=== PATIENT | female | born 1960 | race Two or more races ===

== ENCOUNTER 2016-09-23 14:07 | Emergency (ER) | payer MEDICAID ==
[~2016-09-23] VITALS: Ht 160 cm; Wt 54.4 kg
[~2016-09-23 14:07] MED LIST: AMOXIL250 MG ORAL; IBUPROFEN600 MG ORAL; NKM
[2016-09-23 15:12] VITALS: BP 104/69
[2016-09-23] MEDS ORDERED: Pseudoephedrine 30mg tab ORAL ONE (15:15)
--- NOTE | 2016-09-23 16:10 | Diagnostic Imaging Report ---
Indication: Cough Comparison: 02/17/16 2 views of the chest obtained. No definite infiltrate or pulmonary vascular congestion identified. The heart is borderline enlarged. The aorta is mildly enlarged consistent with atherosclerotic vascular disease. The bones are osteopenic. Impression: No acute disease
[2016-09-23 17:38] VITALS: BP 111/70
[2016-09-23] MEDS ORDERED: IBUPROFEN600 MG ORAL (17:42)
[2016-09-23] MEDS ORDERED: CHLORPHENIRAMINE4 MG ORAL (17:42)
[2016-09-23] MEDS ORDERED: PROMETHAZINE-P118 M1 PO (17:42)
[2016-09-23 18:07] VITALS: BP 111/74
--- NOTE | 2016-09-23 19:52 | Emergency Room Report ---
History of Present Illness General Chief Complaint: Flu Like Symptoms Source: Patient Present Illness HPI Patient presents with 2 days of upper respiratory infection symptoms. She's had a stuffy nose. She also has heaviness in chest pressure. She's been coughing but hasn't been productive. She did not get a flu shot this year. She concerned about her heart and also about whether she has pneumonia at this time and she does not hear wheezing. She's not exposed to cigarette smoke but several days ago was exposed to some spray at work. No NVD, no dysuria, slight headache, no rashes. + body aches 5/10, not radiate - upper back and other muscles. Mucous from nose is clear. Post menopausal. No dysuria. Allergies: Coded Allergies: No Known Allergies (Unverified , 02/17/16) Patient History Past Medical History: see triage record Social History: Denies: smoking Social History Narrative Working Last Menstrual Period: not anymore Now: No : 1 Reviewed Nursing Documentation: PMH: Agreed, PSxH: Agreed Nursing Documentation-PMH Past Medical History: No Stated History Review of Systems All Other Systems: negative except mentioned in HPI Physical Exam Vital Signs Date Time Temp Pulse Resp B/P Pulse Ox O2 Delivery O2 Flow Rate FiO2 09/23/16 14:51 98.4 76 18 101/68 98 Room Air Sp02 EP Interpretation: reviewed, normal General Appearance: well appearing, no apparent distress, GCS 15 Head: normocephalic Eyes: bilateral eye PERRL, bilateral eye normal inspection ENT: moist mucus membranes, pharyngeal erythema, other - nasal congestion - clear Neck: supple Respiratory: lungs clear, normal breath sounds Cardiovascular #1: regular rate, rhythm Cardiovascular #2: 2+ radial (R) Gastrointestinal: normal inspection, normal bowel sounds, non tender, no mass, non-distended Musculoskeletal: back normal, gait/station normal, normal range of motion Neurologic: alert, oriented x3, grossly normal Psychiatric: mood/affect normal Skin: normal inspection, warm/dry Medical Decision Making Diagnostic Impression: Primary Impression: Viral upper respiratory illness ER Course Patient with URI 2 days. Ddx: influenza, viral URI, sinusitis amongst others. Need to determine if flu. If + needs treatment. Will address symptoms. Flu negative. Improved with treatment Stable for outpatient observation and treatment. Microbiology Date/Time Source Procedure Growth Status 09/23/16 16:20 Nasal Nares Influenza Types A,B Antigen (LIZBETH) - Final Complete EKG Diagnostic Results Rate: normal Rhythm: NSR ST Segments: no acute changes Rhythm Strip Diag. Results EP Interpretation: yes Rhythm: NSR, no PVC's, no ectopy Chest X-Ray Diagnostic Results EP Interpretation: Yes Findings: no consolidation, no effusion, no pneumothorax, no acute cardiopulmonary disease Number of Views: 2 Last Vital Signs Date Time Temp Pulse Resp B/P Pulse Ox O2 Delivery O2 Flow Rate FiO2 09/23/16 18:07 78 17 111/74 100 Room Air 09/23/16 17:38 98.6 Status: improved Disposition: HOME, SELF-CARE Condition: Improved Scripts Chlorpheniramine Maleate (CHLORPHENIRAMINE MALEATE) 4 Mg Tablet 4 MG ORAL Q6HR, #12 TAB 0 Refills Prov: Arsenio Soria M.D. 09/23/16 Ibuprofen* (MOTRIN*) 600 Mg Tablet 600 MG ORAL Q6H Y for For Pain, #20 TAB Prov: Arsenio Soria M.D. 09/23/16 Promethazine/Phenyleph/Codeine (Zdjamkbrimoz-BD-Dpelugo Syrup) 118 Ml Syrup 5 ML PO Q6HR, #60 ML Prov: Arsenio Soria M.D. 09/23/16 Departure Forms: Return to Work Return to Work in (Days): 2 Return to Work Date: Sep 25, 2016 Patient Instructions: Upper Respiratory Infection, Adult Additional Instructions: Tylenol j[place] pimentel. Arsenio Soria M.D. Sep 23, 2016 19:52
== END 2016-09-23 18:10 | disposition home or self-care (01) ==
LOC: EMR 15:10
DX: J06.9 Acute upper respiratory infection, unspecified (principal)
CPT/HCPCS: 71020; 86710; 93005; 99283

== ENCOUNTER 2017-01-28 12:33 | Emergency (ER) | payer MEDICAID ==
[~2017-01-28] VITALS: Ht 157.5 cm; Wt 52.6 kg
[~2017-01-28 12:33] MED LIST changes: +CHLORPHENIRAMINE4 MG ORAL; +PROMETHAZINE-P118 M1 PO
--- NOTE | 2017-01-28 12:50 | Emergency Room Report ---
History of Present Illness General Chief Complaint: Upper Respiratory Illness Source: Patient Present Illness [facility] The patient is a 56-year-old female presenting for nasal congestion, dry cough, sneezing which began yesterday at work for no known reason. She denies any known allergies. She is also complaining of chest and back pain which occurs only with coughing. this pain is described as an 8/10 dull ache and does not radiate. She denies any other symptoms including N, V, F, chills, SOB, diaphoresis Allergies: Coded Allergies: No Known Allergies (Unverified , 02/17/16) Patient History Past Medical History: see triage record Pertinent Family History: none Reviewed Nursing Documentation: PMH: Agreed, PSxH: Agreed Nursing Documentation-PMH Past Medical History: No Stated History Review of Systems All Other Systems: negative except mentioned in HPI Physical Exam Vital Signs Date Time Temp Pulse Resp B/P Pulse Ox O2 Delivery O2 Flow Rate FiO2 01/28/17 12:38 98.1 77 20 121/79 100 Room Air Sp02 EP Interpretation: reviewed, normal General Appearance: no apparent distress, alert, GCS 15, non-toxic Head: normocephalic, atraumatic Eyes: bilateral eye PERRL, bilateral eye normal inspection ENT: normal pharynx, no angioedema, normal voice, TMs + canals normal, uvula midline, nasal congestion Neck: full range of motion, supple/symm/no masses Respiratory: chest non-tender, lungs clear, normal breath sounds, no respiratory distress, no accessory muscle use, no wheezing, speaking full sentences Musculoskeletal: back normal, gait/station normal, normal range of motion, non- tender Neurologic: alert, oriented x3, responsive, motor strength/tone normal, sensory intact, normal gait, speech normal Psychiatric: judgement/insight normal, memory normal, mood/affect normal, no suicidal/homicidal ideation Skin: normal color, no rash, warm/dry, well hydrated Lymphatic: no adenopathy Medical Decision Making PA Attestation Dr. Peoples is my supervising physician. Patient management was discussed with my supervising physician Diagnostic Impression: Primary Impression: Environmental allergies ER Course The patient is a 56-year-old female presenting for nasal congestion, dry cough, sneezing Differential diagnosis include but not limited to pharyngitis, allergies, sinusitis, AOM, bronchitis, PNA PE: vitals WNL. NAD HEENT exam reveals nasal congestion only. No lymphadenopathy. Otherwise unremarkable Lungs are clear to auscultation bilaterally The patient will be treated with Claritin and cough medication. She will follow up with PMD. He ER precautions given Chest X-Ray Diagnostic Results EP Interpretation: Yes Findings: no consolidation, no effusion, no pneumothorax, no acute cardiopulmonary disease Number of Views: 1 PA Scribe Text I am acting as scribe for my supervising physician. My supervising physician's interpretation of the chest xrays are there is no consolidation, no effusion, no acute cardiopulmonary disease, no pneumothorax Last Vital Signs Date Time Temp Pulse Resp B/P Pulse Ox O2 Delivery O2 Flow Rate FiO2 01/28/17 12:38 98.1 77 20 121/79 100 Room Air Status: improved Disposition: HOME, SELF-CARE Condition: Improved Scripts Benzonatate* (MARIE MOY*) 100 Mg Capsule 100 MG ORAL THREE TIMES A DAY, #21 PERLE Prov: TERZIANSARATH P.A. 01/28/17 Loratadine/Pseudoephedrine (CLARITIN-D 24 HOUR TABLET) 1 Each Tab.er.24h 1 TAB PO DAILY, #30 TAB Prov: TERZIANSARATH P.A. 01/28/17 TERZIANSARATH P.A. January 28, 2017 12:50
[2017-01-28 13:30] VITALS: BP 117/75
[2017-01-28] MEDS ORDERED: CLARITIN-D 241 EACH PO (13:39)
[2017-01-28] MEDS ORDERED: TESSALON PERLE100 MG ORAL (13:39)
[2017-01-28 13:45] VITALS: BP 117/75
--- NOTE | 2017-01-28 16:08 | Diagnostic Imaging Report ---
Indication: Cough, chest pain Technique: Single AP view of the chest. Findings: Comparison: 09/23/16 Small pleural-based linear density and adjacent pleural thickening persistent lateral aspect of the upper right hemithorax, unchanged. Mild left apical pleural thickening persists, unchanged. The bones and extra pulmonary soft tissues, cardiomediastinal silhouette, pulmonary vasculature and parenchyma, and pleural surfaces remain otherwise unremarkable. IMPRESSION: Stable right upper lobe probable scarring and adjacent pleural thickening Stable mild left apical pleural thickening likely chronic inflammatory No new abnormality.
== END 2017-01-28 13:45 | disposition home or self-care (01) ==
LOC: EMR 13:17
DX: J39.9 Disease of upper respiratory tract, unspecified (principal); T78.40XA Allergy, unspecified, initial encounter; X58.XXXA Exposure to other specified factors, initial encounter; R05 Cough; R06.7 Sneezing; R09.81 Nasal congestion
CPT/HCPCS: 71010; 99284

== ENCOUNTER 2018-01-24 09:31 | Emergency (ER) | payer MEDICAID ==
[~2018-01-24] VITALS: Ht 160 cm; Wt 53.1 kg
[~2018-01-24 09:31] MED LIST changes: +CLARITIN-D 241 EACH PO; +TESSALON PERLE100 MG ORAL
[2018-01-24 09:40] VITALS: BP 113/73
--- NOTE | 2018-01-24 10:04 | Emergency Room Report ---
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 from the chemical denies any recent travel denies any pleurisy Allergies: Coded Allergies: No Known Allergies (Unverified , 02/17/16) Patient History Past Medical History: see triage record Pertinent Family History: none Last Menstrual Period: NA Reviewed Nursing Documentation: PMH: Agreed; PSxH: Agreed Nursing Documentation-PMH Past Medical History: No Stated History Review of Systems All Other Systems: negative except mentioned in HPI Physical Exam Vital Signs Date Time Temp Pulse Resp B/P (MAP) Pulse Ox O2 Delivery O2 Flow Rate FiO2 01/24/18 09:33 97.9 76 16 113/73 97 Room Air 97.9 Sp02 EP Interpretation: reviewed, normal General Appearance: well appearing, no apparent distress Head: normocephalic, atraumatic Eyes: bilateral eye PERRL, bilateral eye EOMI ENT: hearing grossly normal, TMs + canals normal, uvula midline, pharyngeal erythema Neck: full range of motion, supple, no meningismus, no bony tend Respiratory: lungs clear, normal breath sounds, no rhonchi, no respiratory distress, no retraction, no accessory muscle use Cardiovascular #1: normal peripheral pulses, regular rate, rhythm, no edema, no gallop, no JVD, no murmur Gastrointestinal: normal bowel sounds, non tender, soft, no mass, no organomegaly, non-distended, no guarding, no hernia, no pulsatile mass, no rebound Genitourinary: no CVA tenderness Musculoskeletal: normal inspection Neurologic: oriented x3, responsive, interior design consultant III-XII nml as tested, motor strength/ tone normal, sensory intact Psychiatric: mood/affect normal Skin: normal color, no rash, warm/dry, palpation normal Lymphatic: normal inspection, no adenopathy Medical Decision Making Diagnostic Impression: Primary Impression: Pharyngitis ER Course Patient has clinical findings consistent with pharyngitis Given the duration of her age given the risk factors x-ray was also obtained without any obvious acute pathology Imaging was negative patient has done well throughout her stay at this time will be initially conservatively treated with antibiotics for the pharyngitis Chest X-Ray Diagnostic Results Chest X-Ray Diagnostic Results : Chest X-Ray Ordered: Yes # of Views/Limited/Complete: 1 View Indication: Shortness of Breath EP Interpretation: Yes Interpretation: no consolidation, no effusion, no pneumothorax Impression: No acute disease Electronically Signed by: Sonia Dial DO Last Vital Signs Date Time Temp Pulse Resp B/P (MAP) Pulse Ox O2 Delivery O2 Flow Rate FiO2 01/24/18 09:40 76 16 Room Air 01/24/18 09:40 97.9 113/73 97 97.9 Status: improved Disposition: HOME, SELF-CARE Condition: Improved Scripts Ibuprofen* (MOTRIN*) 600 Mg Tablet 600 MG ORAL Q8H PRN for For Pain, #20 TAB 0 Refills Prov: Sonia Dial DO 01/24/18 Amoxicillin* (AMOXIL*) 500 Mg Capsule 500 MG ORAL THREE TIMES A DAY, #21 CAP Prov: Sonia Dial DO 01/24/18 Additional Instructions: Patient is provided with the discharge instructions notified to follow up with primary doctor in the next 2-3 days otherwise return to the er with any worsening symptoms. Please note that this report is being documented using o[employer]k technology. This can lead to erroneous entry secondary to incorrect interpretation by the dictating instrument. Sonia Dial DO January 24, 2018 10:04
[2018-01-24] MEDS ORDERED: AMOXICILLIN500 MG ORAL (11:06)
[2018-01-24] MEDS ORDERED: IBUPROFEN600 MG ORAL (11:06)
--- NOTE | 2018-01-24 11:20 | Diagnostic Imaging Report ---
Indication: Dyspnea Comparison: 01/28/2017 A single view chest radiograph was obtained. Findings: No definite infiltrate or pulmonary vascular congestion identified. The heart is mildly enlarged. The bones are mildly osteopenic. There is no change. Impression: No acute disease
[2018-01-24 11:21] VITALS: BP 124/76
== END 2018-01-24 11:24 | disposition home or self-care (01) ==
LOC: EMR 10:20
DX: J02.9 Acute pharyngitis, unspecified (principal)
CPT/HCPCS: 71045; 99284

== ENCOUNTER 2018-11-26 09:10 | Emergency (ER) | payer MEDICAID ==
[~2018-11-26] VITALS: Ht 160 cm; Wt 53.1 kg
[~2018-11-26 09:10] MED LIST changes: +AMOXICILLIN500 MG ORAL
[2018-11-26 09:29] VITALS: BP 110/70
--- NOTE | 2018-11-26 09:35 | NUR ---
ED Nurse Note: Patient walked in by her self with steady gait, complaining of sore throat. Deny headache, SOB. Per patient it is painful to swalow. AAO x4, VSS at this time. Skin is dry, intakt, warm to touch.
--- NOTE | 2018-11-26 09:48 | Emergency Room Report ---
History of Present Illness General Chief Complaint: Upper Respiratory Illness Source: Patient Present Illness HPI Patient presents with one month of intermittent upper respiratory symptomatology. Currently she has 3 days of worsening cough with mild chest pain. She also has some flank pain on the right-hand side. She's had a workup and told that she has a cyst there. The cough is clear she has increased discharge from her nose and sore throat. In the past she's taken antihistamines and it helped. In addition she's used an inhaler. When she uses the inhaler makes her dizzy. The chest pain is mild and pleuritic. She's taken ibuprofen with some help. She received a flu shot last year. She denies having recent fever or chills. Pain rated 7/10, flank and chest. Not radiating. Not pleuritic. She denies dysuria, nausea, vomiting, diarrhea. The patient ALSO complains about knee pain and right Achilles tendon tenderness in the mornings. She says that time she gets up and moves about has some warm water on the area it helped. She's had a negative workup for arthritis in the past. 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 Period: None Now: No : 1 Para: 1 Reviewed Nursing Documentation: PMH: Agreed; PSxH: Agreed Nursing Documentation-PMH Past Medical History: No Stated History Review of Systems All Other Systems: negative except mentioned in HPI Physical Exam Vital Signs Date Time Temp Pulse Resp B/P (MAP) Pulse Ox O2 Delivery O2 Flow Rate FiO2 11/26/18 09:20 98.6 76 15 108/73 99 11/26/18 09:29 Room Air Sp02 EP Interpretation: reviewed, normal General Appearance: well appearing, no apparent distress Head: normocephalic, atraumatic ENT: hearing grossly normal, normal voice Neck: full range of motion, supple Respiratory: no respiratory distress, speaking full sentences Musculoskeletal: no calf tenderness Neurologic: alert, normal gait Psychiatric: mood/affect normal Skin: no rash Medical Decision Making Diagnostic Impression: Primary Impression: Upper respiratory infection Qualified Codes: J06.9 - Acute upper respiratory infection, unspecified Additional Impression: Tendinitis ER Course Patient presents with URI symptoms with sinus congestion, sore thraot, cough and chest and flank pain. DDx: viral syndrome, sinusitis, muscle strain, pharyngitis amongst others. Exam against flu or strep. Also has symptoms of Julissa's tendon tenderness in AMs. No erythema or plantar fascia tenderness. Clinically, not pneumonia. Based on exam,more viral etiology. Treated with prednisone. Discussed findings and treatment course. Patient stable for outpatient observation and treatment. Last Vital Signs Date Time Temp Pulse Resp B/P (MAP) Pulse Ox O2 Delivery O2 Flow Rate FiO2 11/26/18 10:01 97.9 68 16 135/67 99 Room Air Status: improved Disposition: HOME, SELF-CARE Condition: Improved Scripts Acetaminophen (Tylenol) 325 Mg Tablet 650 MG ORAL Q6H PRN for Prn Pain/Headache/Temp > 101, #20 TAB 0 Refills Prov: Arsenio Soria MD 11/26/18 Chlorpheniramine Maleate (CHLOR-TRIMETON) 4 Mg Tablet 4 MG PO Q6HR PRN for congestion, #14 TAB Prov: Arsenio Soria MD 11/26/18 Guaifenesin/Codeine Phos* (ROBITUSSIN AC*) 118 Ml Liquid 5 ML ORAL Q6H PRN for For Cough, #90 ML 0 Refills Prov: Arsenio Soria MD 11/26/18 Referrals: [facility],REFERR[facility] (PCP) Arsenio Soria MD Nov 26, 2018 09:48
[2018-11-26] MEDS ORDERED: GUAIFENESIN-CO118 M1 ORAL (09:58)
[2018-11-26] MEDS ORDERED: CHLOR-TRIMETON4 MG PO (09:58)
[2018-11-26] MEDS ORDERED: TYLENOL325 MG ORAL (09:58)
[2018-11-26 10:01] VITALS: BP 135/67
--- NOTE | 2018-11-26 10:03 | NUR ---
ER DISCHARGE NOTE: Patient is cleared to be discharged per ERMD, pt is aox4, on room air, with stable vital signs. pt was given dc and prescription instructions, pt was able to verbalize understanding, pt id band removed. pt is able to ambulate with steady gait. pt took all belongings.
== END 2018-11-26 10:15 | disposition home or self-care (01) ==
LOC: EMR 09:30
DX: J06.9 Acute upper respiratory infection, unspecified (principal); M77.9 Enthesopathy, unspecified; R06.00 Dyspnea, unspecified
CPT/HCPCS: 99282; J7512

== ENCOUNTER 2018-11-28 18:25 | Emergency (ER) | payer MEDICAID ==
[~2018-11-28] VITALS: Ht 160 cm; Wt 53.1 kg
[~2018-11-28 18:25] MED LIST changes: +CHLOR-TRIMETON4 MG PO; +GUAIFENESIN-CO118 M1 ORAL; +TYLENOL325 MG ORAL
[2018-11-28 18:44] VITALS: BP 112/77
--- NOTE | 2018-11-28 18:47 | NUR ---
ED Nurse Note: pt walked in to ER c/o coughing for a few days and sore throat 04/15. pt aao x4 and calm and cooperative. per pt, she has been coughing with thick and white phlem coming out. pt is persistently coughing at this moment. no fever, pt denied N/V/D but dizziness present. skin clean and intact. waiting to be seen by ERMD/ERPA
--- NOTE | 2018-11-28 19:00 | NUR ---
ED Nurse Note: ERPA at bedside and assessing pt.
--- NOTE | 2018-11-28 19:15 | NUR ---
HAND-OFF: Report given to GRACIE Snow. EKG will be done.
--- NOTE | 2018-11-28 19:42 | Emergency Room Report ---
History of Present Illness General Chief Complaint: Flu Like Symptoms Source: Patient Present Illness HPI 58 YO Female presents to the ED c/o 04/15 in severity painful cough x 1 week. pt. reporting fevers. Pt. reports that the medications she was recently rx'd are not helping, they are just making her tired. Pt. denies Cardiac hx. pt. reports some SOB after multiple bouts of coughing. Pt. denies smoking, recent travel, or ill contacts. She denies LE edema. Allergies: Coded Allergies: No Known Allergies (Unverified , 02/17/16) Patient History Past Medical History: see triage record Past Surgical History: none Pertinent Family History: none Now: No Reviewed Nursing Documentation: PMH: Agreed; PSxH: Agreed Nursing Documentation-PMH Past Medical History: No Stated History Review of Systems All Other Systems: negative except mentioned in HPI Physical Exam Vital Signs Date Time Temp Pulse Resp B/P (MAP) Pulse Ox O2 Delivery O2 Flow Rate FiO2 11/28/18 18:32 98.4 74 19 112/77 96 Room Air Sp02 EP Interpretation: reviewed, normal General Appearance: no apparent distress, alert, GCS 15, non-toxic Head: normocephalic, atraumatic Eyes: bilateral eye normal inspection, bilateral eye PERRL ENT: hearing grossly normal, normal voice Neck: full range of motion Respiratory: chest non-tender, lungs clear, normal breath sounds, no respiratory distress, no retraction, no accessory muscle use, speaking full sentences, wheezing - scant only at the end of expiration Cardiovascular #1: regular rate, rhythm, no edema Musculoskeletal: back normal, gait/station normal, normal range of motion, non- tender Neurologic: alert, oriented x3, responsive, motor strength/tone normal, sensory intact, speech normal, grossly normal Psychiatric: judgement/insight normal Skin: normal color, no rash, warm/dry, well hydrated Lymphatic: no adenopathy Medical Decision Making PA Attestation Dr. barnes is my supervising Physician whom patient management has been discussed with. Diagnostic Impression: Primary Impression: Atypical pneumonia ER Course 58 YO Female presents to the ED c/o 04/15 in severity painful cough x 1 week. pt. reporting fevers. Pt. reports that the medications she was recently rx'd are not helping, they are just making her tired. Pt. denies Cardiac hx. pt. reports some SOB after multiple bouts of coughing. Pt. denies smoking, recent travel, or ill contacts. She denies LE edema. Ddx considered but are not limited to URI, pneumonia, PE, strep pharyngitis, meningitis. Vital signs: Pt. is afebrile, the remaining VS are WNL H&PE are most consistent with Atypical Pneumonia - no meningeal signs, oropharynx is not involved.. ORDERS: -EK NSR ED INTERVENTIONS: None required at this time. --PT. EDUCATION: Discussed antibiotic resistance with inappropriate prescribing of antibiotics for viral illnesses. Discussed signs and symptoms to indicate viral illness versus bacterial illness. DISCHARGE: At this time pt. is stable for d/c to home. Will provide printed patient care instructions, and any necessary prescriptions. Care plan and follow up instructions have been discussed with the patient prior to discharge. EKG Diagnostic Results EP Interpretation: Dr. Peoples Rate: normal - 68 Rhythm: NSR ST Segments: no acute changes ASA given to the pt in ED: No PA Scribe Text This Interpretation was scribed by ZOE Heller. Last Vital Signs Date Time Temp Pulse Resp B/P (MAP) Pulse Ox O2 Delivery O2 Flow Rate FiO2 11/28/18 18:44 98.1 74 19 112/77 96 Room Air Disposition: HOME, SELF-CARE Condition: Stable Scripts Benzonatate* (TESSALON PERLE*) 100 Mg Capsule 100 MG ORAL THREE TIMES A DAY, #30 PERLE Prov: Jo Ann Heller 11/28/18 Prednisone* (PREDNISONE*) 20 Mg Tablet 40 MG ORAL DAILY for 4 Days, #8 TAB Prov: Jo Ann Heller 11/28/18 Azithromycin* (ZITHROMAX*) 250 Mg Tablet 250 MG ORAL DAILY, #6 TAB 0 Refills Take two tables once daily for 1 day, then one tablet once daily for 4 days. Prov: Jo Ann Heller 11/28/18 Patient Instructions: Acute Bronchitis, [id number] Additional Instructions: Take medications as directed. Follow up with a Primary Care Provider in 3-5 days, even if your symptoms have resolved. --Please review list of primary care clinics, if you do not already have a primary care provider Return sooner to ED if new symptoms occur, or current symptoms become worse. - Please note that this Emergency Department Report was dictated using [employer] machine shop technology software, occasionally this can lead to erroneous entry secondary to interpretation by the dictation equipment. Jo Ann Heller Nov 28, 2018 19:42
[2018-11-28] MEDS ORDERED: PREDNISONE20 MG ORAL (19:48)
[2018-11-28] MEDS ORDERED: ZITHROMAX250 MG ORAL (19:48)
[2018-11-28] MEDS ORDERED: TESSALON PERLE100 MG ORAL (19:48)
--- NOTE | 2018-11-28 19:57 | NUR ---
ED Nurse Note: Patient cleared for discharge by ER provider, patient ambulatory with steady gait, verbalized understanding of discharge instructions, departed with all belongings accompanied by a friend.
[2018-11-28 19:59] VITALS: BP 112/77
--- NOTE | 2018-11-29 19:17 | Cardiology Report ---
APPROVED REPORT EKG Measurement Heart [id number] Normal sinus rhythm Normal ECG
== END 2018-11-28 20:00 | disposition home or self-care (01) ==
LOC: EMR 19:13
DX: J18.9 Pneumonia, unspecified organism (principal)
CPT/HCPCS: 93005; 99283

== ENCOUNTER 2018-11-30 13:21 | Emergency (ER) | payer MEDICAID ==
[~2018-11-30] VITALS: Ht 160 cm; Wt 53.1 kg
[~2018-11-30 13:21] MED LIST changes: +PREDNISONE20 MG ORAL; +ZITHROMAX250 MG ORAL
[2018-11-30 13:40] VITALS: BP 131/89
--- NOTE | 2018-11-30 14:15 | Emergency Room Report ---
History of Present Illness General Chief Complaint: General Complaint Source: Patient Present Illness HPI 58-year-old female patient presents ER complaining of diarrhea for the past day. Patient reports that she was previously seen here in the ER and given antibiotics for atypical pneumonia, states she has been taking azithromycin as instructed. Denies blood in stool. Denies recent travel outside the country. Also reports continued cough during this time. Reports that this morning she noted a small tinge of blood in her cough. Reports cough is intermittent. Denies shortness of breath. Denies other aggravating or relieving factors. Denies abdominal pain. Denies vomiting. Denies recent travel or recent period of immobilization. Denies syncope or dizziness. Allergies: Coded Allergies: No Known Allergies (Unverified , 02/17/16) Patient History Past Medical History: see triage record Last Menstrual Period: na Reviewed Nursing Documentation: PMH: Agreed; PSxH: Agreed Nursing Documentation-PMH Past Medical History: No History, Except For Review of Systems All Other Systems: negative except mentioned in HPI Physical Exam Vital Signs Date Time Temp Pulse Resp B/P (MAP) Pulse Ox O2 Delivery O2 Flow Rate FiO2 11/30/18 13:28 97.9 71 18 131/89 98 Room Air Sp02 EP Interpretation: reviewed, normal General Appearance: well appearing, no apparent distress, alert, GCS 15, non- toxic Head: normocephalic, atraumatic Eyes: bilateral eye normal inspection, bilateral eye PERRL ENT: hearing grossly normal, normal pharynx, no angioedema, normal voice, TMs + canals normal, uvula midline, moist mucus membranes Neck: full range of motion, no meningismus, no bony tend Respiratory: lungs clear, normal breath sounds, no rhonchi, no respiratory distress, no accessory muscle use, no wheezing, speaking full sentences Cardiovascular #1: regular rate, rhythm, no edema, normal capillary refill Gastrointestinal: non tender, soft, no mass, non-distended, no guarding, no rebound, other - Negative Rovsing, negative obturator Genitourinary: no CVA tenderness Musculoskeletal: back normal, digits/nails normal, gait/station normal, normal range of motion, non-tender, no calf tenderness, Gayle's Sign negative Neurologic: alert, oriented x3, responsive, motor strength/tone normal, sensory intact Psychiatric: mood/affect normal Skin: no rash, normal turgor Lymphatic: no adenopathy Medical Decision Making PA Attestation Dr. Peoples is my supervising Physician whom patient management has been discussed with. Diagnostic Impression: Primary Impression: Diarrhea Additional Impression: Cough ER Course Pt. presents to the ED c/o diarrhea and blood in sputum. Ddx considered but are not limited to medication side effect, enteritis, pneumonia, bronchitis, gastritis, PE. Low suspicion for PE per well's criteria. Vital signs: are WNL, pt. is afebrile ER COURSE: Vital signs stable, no signs of anemia, does not require blood work at this time. Picture of blood shown to me in the ER, small amount, likely second area to localized irritation of mucosa, not require treatment or intervention. Denies chest pain or shortness of breath. No tachycardia, negative Homans sign , low suspicion for PE. Refill less than 2 seconds, normal skin turgor, no signs of dehydration. Denies abdominal pain, denies blood in stool, denies recent travel outside the country, does not require imaging or labs at this time. Advised patient take Tylenol for pain symptoms present, drink plenty fluids. Diarrhea likely side effect of antibiotics. Discussed patient care with supervising physician, we will not switch medications at this time. Complete full course of antibiotics. Does not require intervention labs in the ER. Patient stable, smiling and laughing, resting in no acute distress, denies acute symptoms. ER precautions given. Follow-up with primary care provider in 2-3 days DISCHARGE: At this time pt is stable for d/c to home. Patient is resting comfortably, in no acute distress, nontoxic appearing, talking without difficulty. Patient to take medications as instructed Will provide with patient care instructions and any necessary prescriptions. Care plan and follow-up instructions provided. Patient instructed to follow-up with primary care provider in 2-3 days. Patient questions asked and answered. Patient reports understanding and agreement to treatment plan. ER precautions given. Patient instructed to return to ER immediately for any new or worsening of symptoms including but not limited to increasing SOB, persistent fever, chest pain, intractable vomiting. - Please note that this Emergency Department Report was dictated using [employer] theater arts technology software, occasionally this can lead to erroneous entry secondary to interpretation by the dictation equipment. Last Vital Signs Date Time Temp Pulse Resp B/P (MAP) Pulse Ox O2 Delivery O2 Flow Rate FiO2 11/30/18 13:28 97.9 71 18 131/89 98 Room Air Status: improved Disposition: HOME, SELF-CARE Condition: Stable Referrals: [facility]ERR[facility] (PCP) Patient Instructions: Cough, Adult, [id number], Diarrhea, Adult, [id number] , Food Choices to Help Relieve Diarrhea, Adult Additional Instructions: Followup with primary care provider in 3 -5 days. Continue to take abx as previously instructed, return to ER immediately for new or worsening of symptoms. BRAT diet: bananas, rice, apple sauce, toast. Consider Immodium for diarrhea and Tylenol for pain symptoms. Take medications as directed. Patient questions asked and answered. ER precautions given, patient instructed to return to ER immediately for any new or worsening of symptoms. Huy Lopez Nov 30, 2018 14:14
[2018-11-30 14:22] VITALS: BP 131/89
== END 2018-11-30 14:22 | disposition home or self-care (01) ==
LOC: EMR 13:38
DX: R19.7 Diarrhea, unspecified (principal); R05 Cough
CPT/HCPCS: 99282

== ENCOUNTER 2018-12-04 14:19 | Emergency (ER) | payer MEDICAID ==
[~2018-12-04] VITALS: Ht 160 cm; Wt 53.1 kg
[2018-12-04 14:35] VITALS: BP 123/72
--- NOTE | 2018-12-04 14:35 | NUR ---
ED Nurse Note: AMBULATED IN TO ER DUE TO NON-RADIATING CP X 1 HOUR. PT REPORTS THAT SHE FINISHED AZITHROMYCIN FOR UTI. DENIES N/V. A/OX4. NO SOB NOR LABOR BREATHING NOTED. NO S/S OF DISTRESS.
[2018-12-04] MEDS ORDERED: Ipratropium 0.02% Inh Soln 2.5ml UD HHN ONE (14:45)
[2018-12-04] MEDS ORDERED: Albuterol ud Inhalation HHN ONE (14:45)
[2018-12-04] MEDS ORDERED: Solu-MEDROL 125mg Inj IVP ONE (14:45)
--- NOTE | 2018-12-04 14:49 | Emergency Room Report ---
History of Present Illness General Chief Complaint: Chest Pain Source: Patient Present Illness HPI Patient presents with feeling that there is some pressure, "boiling" in her chest. She felt this yesterday after work. She also felt that again today while she was in the religion with air-conditioning. She is a very distant history of using an inhaler for allergies in the past. She recently ended treatment for bronchitis with azithromycin, and prednisone. She took the last azithromycin 2 days ago. She denies any fevers or chills. She denies nausea, vomiting or diarrhea. She's had intermittent cough. History of asthma and pneumonia. No smoking, family history of heart disease, hypertension or diabetes. Allergies: Coded Allergies: No Known Allergies (Unverified , 02/17/16) Patient History Past Medical History: see triage record Social History: Denies: smoking Social History Narrative She worked yesterday. Coming from home Reviewed Nursing Documentation: PMH: Agreed; PSxH: Agreed Nursing Documentation-PMH Past Medical History: No History, Except For Review of Systems All Other Systems: negative except mentioned in HPI Physical Exam Vital Signs Date Time Temp Pulse Resp B/P (MAP) Pulse Ox O2 Delivery O2 Flow Rate FiO2 12/04/18 14:33 98.1 82 20 123/72 99 Room Air Sp02 EP Interpretation: reviewed, normal General Appearance: well appearing, no apparent distress, GCS 15 Head: normocephalic Eyes: bilateral eye normal inspection, bilateral eye PERRL, bilateral eye EOMI ENT: moist mucus membranes Neck: supple Respiratory: chest non-tender, wheezing - R lungs only, inspiration Cardiovascular #1: regular rate, rhythm, no edema Cardiovascular #2: 2+ radial (R) Gastrointestinal: normal inspection, normal bowel sounds, non tender, no mass, non-distended Musculoskeletal: back normal, gait/station normal, normal range of motion Neurologic: alert, oriented x3, grossly normal Psychiatric: mood/affect normal - slightly anxious Skin: normal inspection, warm/dry Medical Decision Making Diagnostic Impression: Primary Impression: Bronchospasm ER Course Patient presents with a strange feeling in her chest. In addition she has localized wheezing. Differential includes asthma, bronchitis, obstructive lesion, allergy amongst others. Evaluation will be with EKG, chest x-ray and labs. The patient will be treated with breathing treatment and methylprednisolone. Based on her physical exam and vital signs pulmonary embolus is extremely unlikely. EKG normal sinus rhythm no injury. Chest x-ray clear. CBC CMP normal. Urinalysis clear. Patient improved after breathing treatment and slight Medrol. Discussed treatment plan and need to follow-up with her doctor. Patient stable for outpatient observation and treatment Laboratory Tests Test 12/04/18 14:45 White Blood Count 10.5 K/UL (4.8-10.8) Red Blood Count 4.06 M/UL (4.20-5.40) L Hemoglobin 12.1 G/DL (12.0-16.0) Hematocrit 35.4 % (37.0-47.0) L Mean Corpuscular Volume 87 FL (80-99) Mean Corpuscular Hemoglobin 29.9 PG (27.0-31.0) Mean Corpuscular Hemoglobin Concent 34.2 G/DL (32.0-36.0) Red Cell Distribution Width 10.7 % (11.6-14.8) L Platelet Count 335 K/UL (150-450) Mean Platelet Volume 4.7 FL (6.5-10.1) L Neutrophils (%) (Auto) 54.0 % (45.0-75.0) Lymphocytes (%) (Auto) 38.4 % (20.0-45.0) Monocytes (%) (Auto) 5.3 % (1.0-10.0) Eosinophils (%) (Auto) 0.9 % (0.0-3.0) Basophils (%) (Auto) 1.4 % (0.0-2.0) Urine Color Pale yellow Urine Appearance Clear Urine pH 6 (4.5-8.0) Urine Specific [place] 1.005 (1.005-1.035) Urine Protein Negative (NEGATIVE) Urine Glucose (UA) Negative (NEGATIVE) Urine Ketones Negative (NEGATIVE) Urine Blood 4+ (NEGATIVE) H Urine Nitrite Negative (NEGATIVE) Urine Bilirubin Negative (NEGATIVE) Urine Urobilinogen Normal MG/DL (0.0-1.0) Urine Leukocyte Esterase 1+ (NEGATIVE) H Urine RBC 0-2 /HPF (0 - 2) Urine WBC 0-2 /HPF (0 - 2) Urine Squamous Epithelial Cells Occasional /LPF Urine Bacteria None /HPF (NONE) Sodium Level 143 MMOL/L (136-145) Potassium Level 3.5 MMOL/L (3.5-5.1) Chloride Level 105 MMOL/L (98-107) Carbon Dioxide Level 30 MMOL/L (21-32) Anion Gap 8 mmol/L (5-15) Blood Urea Nitrogen 16 mg/dL (7-18) Creatinine 0.7 MG/DL (0.55-1.30) Estimate Glomerular Filtration Rate > 60 mL/min (>60) Glucose Level 94 MG/DL (74-106) Calcium Level 9.2 MG/DL (8.5-10.1) Total Bilirubin 0.4 MG/DL (0.2-1.0) Aspartate Amino Transferase (AST) 15 U/L (15-37) Alanine Aminotransferase (ALT) 21 U/L (12-78) Alkaline Phosphatase 90 U/L (46-116) Total Creatine Kinase 40 U/L (26-308) Troponin I 0.000 ng/mL (0.000-0.056) Pro-B-Type Natriuretic Peptide 91 pg/mL (0-125) Total Protein 6.5 G/DL (6.4-8.2) Albumin 3.4 G/DL (3.4-5.0) Globulin 3.1 g/dL Albumin/Globulin Ratio 1.1 (1.0-2.7) EKG Diagnostic Results Rate: normal Rhythm: NSR ST Segments: no acute changes Rhythm Strip Diag. Results EP Interpretation: yes Rhythm: NSR, no PVC's, no ectopy Chest X-Ray Diagnostic Results Chest X-Ray Diagnostic Results : Chest X-Ray Ordered: Yes # of Views/Limited/Complete: 1 View Indication: Other EP Interpretation: Yes Interpretation: no consolidation, no effusion, no pneumothorax Impression: No acute disease Electronically Signed by: Electronically signed by Arsenio Soria MD Last Vital Signs Date Time Temp Pulse Resp B/P (MAP) Pulse Ox O2 Delivery O2 Flow Rate FiO2 12/04/18 16:26 98.1 71 13 126/75 100 Room Air 12/04/18 16:26 21 Status: improved Disposition: HOME, SELF-CARE Condition: Improved Scripts Prednisone* (PREDNISONE*) 10 Mg Tablet 10 MG ORAL DAILY, #22 TAB 0 Refills 4 po QD X 2, 3 po QD X 2, 2 po QD X 2, 1 po QD X 4 Prov: Arsenio Soria MD 12/04/18 Albuterol Sulfate* (ALBUTEROL SULFATE MDI*) 8.5 Gm Hfa.aer.ad 2 PUFF INH Q6H, #1 EA 0 Refills Prov: Arsenio Soria MD 12/04/18 Arsenio Soria MD Dec 04, 2018 14:49
--- NOTE | 2018-12-04 15:01 | NUR ---
ED Nurse Note: BLOOD SPECIMENS AND URINE SENT DOWN TO THE LAB.
[2018-12-04 15:18] LABS: APPEARANCE,URINE CLEAR; BILIRUBIN, URINE NEGATIVE (NEGATIVE); COLOR,URINE PALE YELLOW; GLUCOSE, URINE (UA) NEGATIVE (NEGATIVE); KETONES,URINE NEGATIVE (NEGATIVE); LEUKOCYTE ESTERASE ,URINE 1+ (NEGATIVE); NITRITE,URINE NEGATIVE (NEGATIVE); PH,URINE 6 (4.5-8.0); PROTEIN,URINE NEGATIVE (NEGATIVE); UROBILINOGEN,URINE NORMAL MG/DL (0.0-1.0)
[2018-12-04 15:20] LABS: BASOPHILS % (AUTO) 1.4 % (0.0-2.0); EOSINOPHILS % (AUTO) 0.9 % (0.0-3.0); HEMATOCRIT 35.4 % (37.0-47.0); HEMOGLOBIN 12.1 G/DL (12.0-16.0); LYMPHOCYTES % (AUTO) 38.4 % (20.0-45.0); MEAN CORPUSCULAR VOLUME 87 FL (80-99); MONOCYTES % (AUTO) 5.3 % (1.0-10.0); PLATELET COUNT 335 K/UL (150-450); RED BLOOD COUNT 4.06 M/UL (4.20-5.40); RED CELL DISTRIBUTION WIDTH 10.7 % (11.6-14.8); WHITE BLOOD COUNT 10.5 K/UL (4.8-10.8)
[2018-12-04 15:31] LABS: ANION GAP 8 mmol/L (5-15); BLOOD UREA NITROGEN 16 mg/dL (7-18); CALCIUM 9.2 MG/DL (8.5-10.1); CARBON DIOXIDE 30 MMOL/L (21-32); CHLORIDE 105 MMOL/L (98-107); CREATININE 0.7 MG/DL (0.55-1.30); POTASSIUM 3.5 MMOL/L (3.5-5.1); SODIUM 143 MMOL/L (136-145)
[2018-12-04 15:42] LABS: ALANINE AMINOTRANSFERASE 21 U/L (12-78); ALBUMIN 3.4 G/DL (3.4-5.0); ALBUMIN/GLOBULIN RATIO 1.1 (1.0-2.7); ALKALINE PHOSPHATASE 90 U/L (46-116); ASPARTATE AMINO TRANSFERASE 15 U/L (15-37); BILIRUBIN,TOTAL 0.4 MG/DL (0.2-1.0); CREATINE KINASE 40 U/L (26-308)
[2018-12-04] MEDS ORDERED: PREDNISONE10 MG ORAL (16:19)
[2018-12-04] MEDS ORDERED: ALBUTEROL SULF8.5 GM INH (16:19)
[2018-12-04 16:26] VITALS: BP 126/75
--- NOTE | 2018-12-04 16:27 | NUR ---
ED Nurse Note: Pt cleared by health care Provider for discharge. DC instructions/prescription was given and explained to pt and verbalized understanding of teachings. All medical deviecs such as ID band and IV removed. Pt is AAO x4, ambulatory and left with all personal belongings.
--- NOTE | 2018-12-05 11:14 | Diagnostic Imaging Report ---
Indication: Shortness of breath Technique: One view of the chest Comparison: 01/24/2018 Findings: Lungs and pleural spaces are clear. Heart size is upper limits normal. No significant interim change Impression: No acute process
--- NOTE | 2018-12-06 21:30 | Cardiology Report ---
APPROVED REPORT EKG Measurement Heart [id number] Normal sinus rhythm Normal ECG
== END 2018-12-04 16:27 | disposition home or self-care (01) ==
LOC: EMR 14:50
DX: J98.01 Acute bronchospasm (principal)
CPT/HCPCS: 36415; 71045; 80053; 81003; 82550; 83880; 84484; 85025; 93005; 94640; 94664; 96374; 99284; J2930

== ENCOUNTER 2018-12-07 19:33 | Emergency (ER) | payer SELFPAY ==
[~2018-12-07] VITALS: Ht 162.6 cm; Wt 53.1 kg
[~2018-12-07 19:33] MED LIST changes: +ALBUTEROL SULF8.5 GM INH; +PREDNISONE10 MG ORAL
[2018-12-07 19:44] VITALS: BP 112/76
--- NOTE | 2018-12-07 19:47 | NUR ---
ED Nurse Note: Patient presents as a walk in with complaints of bilateral lower back pain. Patient was seen on wednesday for bronchospasm and believes that complaint is associated with her last visit.
[2018-12-07 20:15] LABS: APPEARANCE,URINE CLEAR; BILIRUBIN, URINE NEGATIVE (NEGATIVE); COLOR,URINE PALE YELLOW; GLUCOSE, URINE (UA) NEGATIVE (NEGATIVE); KETONES,URINE NEGATIVE (NEGATIVE); LEUKOCYTE ESTERASE ,URINE 3+ (NEGATIVE); NITRITE,URINE NEGATIVE (NEGATIVE); PH,URINE 6.5 (4.5-8.0); PROTEIN,URINE NEGATIVE (NEGATIVE); UROBILINOGEN,URINE NORMAL MG/DL (0.0-1.0)
[2018-12-07] MEDS ORDERED: TYLENOL COLD H1 EAC4 PO (21:08)
--- NOTE | 2018-12-07 21:15 | NUR ---
ED Nurse Note: Patient cleared for discharge, patient is ambulatory with steady gait, A&Ox4, has no questions reagrding discharge and verbalized understanding. PAtient departed with all personal belongings. ID band removed.
--- NOTE | 2018-12-07 22:18 | Emergency Room Report ---
History of Present Illness General Chief Complaint: Lower Back Pain or Injury Source: Patient Present Illness HPI 58-year-old female presents ED for evaluation. Patient complaining of back pain which started this morning. Dull, 6 out of 10, nonradiating. Denies any fall or injury. Denies dysuria or hematuria. States she was seen a few days ago here in the ER for bronchospasm. Was prescribed prednisone and inhaler. States that when she takes the prednisone at night makes her stay awake. She also notes feeling congested in the nose. Denies fevers or chills. Denies sore throat or earache. Denies sick contacts or recent travel. No other aggravating relieving factors. Denies any other associated symptoms Allergies: Coded Allergies: No Known Allergies (Unverified , 02/17/16) Patient History Past Medical History: asthma Past Surgical History: none Pertinent Family History: none Social History: Denies: smoking, alcohol use, drug use Last Menstrual Period: n/a Now: No Immunizations: UTD Reviewed Nursing Documentation: PMH: Agreed; PSxH: Agreed Nursing Documentation-PMH Past Medical History: No History, Except For Review of Systems All Other Systems: negative except mentioned in HPI Physical Exam Vital Signs Date Time Temp Pulse Resp B/P (MAP) Pulse Ox O2 Delivery O2 Flow Rate FiO2 12/07/18 19:37 98.2 82 18 112/76 99 Room Air Sp02 EP Interpretation: reviewed, normal General Appearance: no apparent distress, alert, GCS 15, non-toxic Head: normocephalic, atraumatic Eyes: bilateral eye normal inspection, bilateral eye PERRL ENT: hearing grossly normal, normal pharynx, no angioedema, normal voice Neck: full range of motion, supple/symm/no masses Respiratory: chest non-tender, lungs clear, normal breath sounds, speaking full sentences Cardiovascular #1: regular rate, rhythm, no edema Cardiovascular #2: 2+ carotid (R), 2+ carotid (L), 2+ radial (R), 2+ radial (L) , 2+ dorsalis pedis (R), 2+ dorsalis pedis (L) Gastrointestinal: normal bowel sounds, non tender, soft, non-distended, no guarding, no rebound Rectal: deferred Genitourinary: normal inspection, no CVA tenderness Musculoskeletal: gait/station normal, normal range of motion, tender - paraspinal lumbar tenderness Neurologic: alert, oriented x3, responsive, motor strength/tone normal, sensory intact, speech normal Psychiatric: judgement/insight normal, memory normal, mood/affect normal, no suicidal/homicidal ideation Reflexes: 3+ bicep (R), 3+ bicep (L), 3+ tricep (R), 3+ tricep (L), 3+ knee (R) , 3+ knee (L) Skin: normal color, no rash, warm/dry, well hydrated Lymphatic: no adenopathy Medical Decision Making Diagnostic Impression: Primary Impression: Bronchitis Additional Impression: Low back strain Qualified Codes: S39.012A - Strain of muscle, fascia and tendon of lower back , initial encounter ER Course Hospital Course 58 year-old female presents with congestion, runny nose, cough, back pain Differential diagnoses include: URI, pharyngitis, otitis media, asthma Clinical course Patient placed on stretcher. After initial history, physical exam reveals a female in no acute distress. Bilateral TM unremarkable. No pharyngeal erythema. No tonsillar exudates. No lymphadenopathy. lungs clear. abdomen soft. Reviewed EMR. Patient was seen here on 12/04. Noted to have bronchospasm. Had workup including labs, chest x-ray and troponin all of which which unremarkable. Patient was discharged with prednisone, inhaler Patient states that she'll use the inhaler at night and it helps but then she starts to have symptoms in the morning again. I explained that she needs to use the inhaler as directed every 4-6 hours. Her symptoms are viral and typical disease course lasts 10-12 days. Patient states that she has trouble sleeping with the prednisone. I stated that it is okay for her to take it in the morning instead of at night UA unremarkable. reassurance given the patient. We will discharged to home. We will also prescribe Tylenol multisymptom to help with the cough and congestion Safe for discharge close outpatient follow-up. States she has a PMD Diagnosisbronchitis, low back pain Stable and discharged home with Rx Tylenol multisymptom. Instructed to followup with PMD. Return to ED if symptoms recur or worsen Labs Test 12/07/18 20:00 Urine Color Pale yellow Urine Appearance Clear Urine pH 6.5 (4.5-8.0) Urine Specific [place] 1.010 (1.005-1.035) Urine Protein Negative (NEGATIVE) Urine Glucose (UA) Negative (NEGATIVE) Urine Ketones Negative (NEGATIVE) Urine Blood 5+ (NEGATIVE) Urine Nitrite Negative (NEGATIVE) Urine Bilirubin Negative (NEGATIVE) Urine Urobilinogen Normal MG/DL (0.0-1.0) Urine Leukocyte Esterase 3+ (NEGATIVE) Urine RBC 5-10 /HPF (0 - 2) Urine WBC 5-10 /HPF (0 - 2) Urine Squamous Epithelial Cells Few /LPF (NONE/OCC) Urine Bacteria Few /HPF (NONE) Last Vital Signs Date Time Temp Pulse Resp B/P (MAP) Pulse Ox O2 Delivery O2 Flow Rate FiO2 12/07/18 20:42 98.2 12/07/18 19:44 78 18 112/76 99 Room Air Status: improved Disposition: HOME, SELF-CARE Condition: Stable Scripts Guaifen/Phenyleph/Acetaminophn (Tylenol Cold Head Congest Cplt) 1 Each Tablet 1 EACH PO Q6HR for 7 Days, TAB Prov: Stone Peoples MD 12/07/18 Patient Instructions: Acute Bronchitis, Cbov-bi-Ajud Stone Peoples MD Dec 07, 2018 22:18
== END 2018-12-07 21:15 | disposition home or self-care (01) ==
LOC: EMR 19:54
DX: S39.012A Strain of muscle, fascia and tendon of lower back, initial encounter (principal); J20.9 Acute bronchitis, unspecified; X58.XXXA Exposure to other specified factors, initial encounter; Y92.9 Unspecified place or not applicable
CPT/HCPCS: 81003; 96372; 99282; 99283

== ENCOUNTER 2020-08-26 17:58 | Emergency (ER) | payer BC, OTHER ==
[~2020-08-26] VITALS: Ht 160 cm; Wt 54.9 kg
[~2020-08-26 17:58] MED LIST changes: +TYLENOL COLD H1 EAC4 PO
--- NOTE | 2020-08-26 18:14 | NUR ---
ED Nurse Note: Patient walked in to ER c/o chest pain started 3 days ago in the middle chest 03/15, non radiating. Denies bodyaches, chills, nausea. Patient presented calm, AAO x4, VSS at this time, has even non labored breating, O2 sat 100% on RA.
[2020-08-26 18:15] VITALS: BP 128/77
[2020-08-26] MEDS ORDERED: Acetaminophen 500mg (ES) tab ORAL ONE (18:30)
--- NOTE | 2020-08-26 19:10 | NUR ---
ED Nurse Note: IV line was established on right AC 20ga blood collected sent to lab
[2020-08-26 19:26] LABS: BASOPHILS % (AUTO) 1.7 % (0.0-2.0); EOSINOPHILS % (AUTO) 1.1 % (0.0-3.0); HEMATOCRIT 36.5 % (37.0-47.0); HEMOGLOBIN 12.8 G/DL (12.0-16.0); LYMPHOCYTES % (AUTO) 31.2 % (20.0-45.0); MEAN CORPUSCULAR VOLUME 87 FL (80-99); MONOCYTES % (AUTO) 8.2 % (1.0-10.0); NEUTROPHILS % (AUTO) 57.9 % (45.0-75.0); PLATELET COUNT 273 K/UL (150-450); RED CELL DISTRIBUTION WIDTH 12.3 % (11.6-14.8); WHITE BLOOD COUNT 6.6 K/UL (4.8-10.8)
[2020-08-26 19:47] LABS: ANION GAP 4 mmol/L (5-15); BLOOD UREA NITROGEN 16 mg/dL (7-18); CARBON DIOXIDE 30 MMOL/L (21-32); CHLORIDE 106 MMOL/L (98-107); CREATININE 0.8 MG/DL (0.55-1.30); POTASSIUM 3.9 MMOL/L (3.5-5.1); SODIUM 140 MMOL/L (136-145)
[2020-08-26 19:52] LABS: ALANINE AMINOTRANSFERASE 21 U/L (12-78); ALBUMIN 3.5 G/DL (3.4-5.0); ALBUMIN/GLOBULIN RATIO 1.1 (1.0-2.7); ALKALINE PHOSPHATASE 95 U/L (46-116); ASPARTATE AMINO TRANSFERASE 20 U/L (15-37); BILIRUBIN,TOTAL 0.3 MG/DL (0.2-1.0)
[2020-08-26 20:27] VITALS: BP 128/77
--- NOTE | 2020-08-26 20:29 | NUR ---
ER DISCHARGE NOTE: Patient is cleared to be discharged per ERMD, pt is aox4, on room air, with stable vital signs. pt was given dc and prescription instructions, pt was able to verbalize understanding, pt id band and iv site removed without complications. pt is able to ambulate with steady gait. pt took all belongings.
--- NOTE | 2020-08-26 22:05 | Emergency Room Report ---
History of Present Illness General Chief Complaint: Chest Pain Source: Patient Present Illness HPI 60-year-old female presents with chest pain. Midsternal, dull, 5 out of 10, nonradiating. Denies shortness of breath. Denies fevers or chills. Denies cough. No other aggravating relieving factors. Denies any other associated symptoms Allergies: Coded Allergies: No Known Allergies (Unverified , 02/17/16) COVID-19 Screening Contact w/high risk pt: No Experienced COVID-19 symptoms?: No COVID-19 Testing performed ORTHOPEDIC RN: No Patient History Past Medical History: none Past Surgical History: none Pertinent Family History: none Social History: Denies: smoking, alcohol use, drug use Now: No Immunizations: UTD Reviewed Nursing Documentation: PMH: Agreed; PSxH: Agreed Nursing Documentation-PMH Past Medical History: No History, Except For Review of Systems All Other Systems: negative except mentioned in HPI Physical Exam Vital Signs Date Time Temp Pulse Resp B/P (MAP) Pulse Ox O2 Delivery O2 Flow Rate FiO2 08/26/20 18:07 98.2 69 18 128/77 (94) 97 Room Air Sp02 EP Interpretation: reviewed, normal General Appearance: no apparent distress, alert, GCS 15, non-toxic Head: normocephalic, atraumatic Eyes: bilateral eye normal inspection, bilateral eye PERRL ENT: hearing grossly normal, normal pharynx, no angioedema, normal voice Neck: full range of motion, supple/symm/no masses Respiratory: lungs clear, normal breath sounds, speaking full sentences, other - reproducible midsternal chest wall pain Cardiovascular #1: regular rate, rhythm, no edema Cardiovascular #2: 2+ carotid (R), 2+ carotid (L), 2+ radial (R), 2+ radial (L), 2+ dorsalis pedis (R), 2+ dorsalis pedis (L) Gastrointestinal: normal bowel sounds, non tender, soft, non-distended, no guarding, no rebound Rectal: deferred Genitourinary: normal inspection, no CVA tenderness Musculoskeletal: back normal, normal range of motion, gait/station normal, non- tender Neurologic: alert, motor strength/tone normal, oriented x3, sensory intact, responsive, speech normal Psychiatric: judgement/insight normal, memory normal, mood/affect normal, no suicidal/homicidal ideation Reflexes: 3+ bicep (R), 3+ bicep (L), 3+ tricep (R), 3+ tricep (L), 3+ knee (R), 3+ knee (L) Skin: no rash Lymphatic: no adenopathy Medical Decision Making Diagnostic Impression: Primary Impression: Chest pain Qualified Codes: R07.9 - Chest pain, unspecified ER Course Hospital Course 60-year-old F presents ED complaining of chest pain Differential diagnoses include: Rib fracture, MD/unstable angina, contusion, muscle strain Clinical course Patient placed on stretcher. After initial history and physical I ordered labs, EKG, chest x-ray. labs reviewed- all electrolytes normal, troponins negative, no leukocytosis, hemoglobin/hematocrit stable EKG - NSR no acute ischemic changes interpreted by me Chest x-ray-no cardiomegaly, no rib fracture, no pneumothorax, no acute process per HEART score, patient is at low risk for acute event given lack of risk factors. Patient can be safely discharged to home pending outpatient followup. I. I feel this is a highly complex case requiring extensive working including EKG/Rhythm strip, Xray/CT/US, Blood/urine lab work, repeat exams while in ED, and administration of strong opiates/narcotics for pain control, admission to hospital or close patient follow up. Diagnosis - chest pain Stable and discharged to home. Instructed to followup with PMD. Return to ED if symptoms recur or worsen Laboratory Tests Test 08/26/20 19:05 White Blood Count 6.6 K/UL (4.8-10.8) Red Blood Count 4.20 M/UL (4.20-5.40) Hemoglobin 12.8 G/DL (12.0-16.0) Hematocrit 36.5 % (37.0-47.0) L Mean Corpuscular Volume 87 FL (80-99) Mean Corpuscular Hemoglobin 30.6 PG (27.0-31.0) Mean Corpuscular Hemoglobin Concent 35.2 G/DL (32.0-36.0) Red Cell Distribution Width 12.3 % (11.6-14.8) Platelet Count 273 K/UL (150-450) Mean Platelet Volume 5.9 FL (6.5-10.1) L Neutrophils (%) (Auto) 57.9 % (45.0-75.0) Lymphocytes (%) (Auto) 31.2 % (20.0-45.0) Monocytes (%) (Auto) 8.2 % (1.0-10.0) Eosinophils (%) (Auto) 1.1 % (0.0-3.0) Basophils (%) (Auto) 1.7 % (0.0-2.0) Sodium Level 140 MMOL/L (136-145) Potassium Level 3.9 MMOL/L (3.5-5.1) Chloride Level 106 MMOL/L (98-107) Carbon Dioxide Level 30 MMOL/L (21-32) Anion Gap 4 mmol/L (5-15) L Blood Urea Nitrogen 16 mg/dL (7-18) Creatinine 0.8 MG/DL (0.55-1.30) Estimat Glomerular Filtration Rate > 60 mL/min (>60) Glucose Level 91 MG/DL (74-106) Calcium Level 9.0 MG/DL (8.5-10.1) Total Bilirubin 0.3 MG/DL (0.2-1.0) Aspartate Amino Transf (AST/SGOT) 20 U/L (15-37) Alanine Aminotransferase (ALT/SGPT) 21 U/L (12-78) Alkaline Phosphatase 95 U/L (46-116) Troponin I 0.005 ng/mL (0.000-0.056) Total Protein 6.6 G/DL (6.4-8.2) Albumin 3.5 G/DL (3.4-5.0) Globulin 3.1 g/dL Albumin/Globulin Ratio 1.1 (1.0-2.7) EKG Diagnostic Results Troponin ordered: Yes Rate: normal Rhythm: NSR ST Segments: no acute changes ASA given to the pt in ED: No Rhythm Strip Diag. Results EP Interpretation: yes Rhythm: NSR, no PVC's, no ectopy Chest X-Ray Diagnostic Results Chest X-Ray Diagnostic Results : Chest X-Ray Ordered: Yes # of Views/Limited/Complete: 1 View Indication: Chest Pain EP Interpretation: Yes Interpretation: no consolidation, no effusion, no pneumothorax, no acute cardiopulmonary disease Impression: No acute disease Electronically Signed by: Electronically signed by Stone Peoples MD Last Vital Signs Date Time Temp Pulse Resp B/P (MAP) Pulse Ox O2 Delivery O2 Flow Rate FiO2 08/26/20 20:27 98.2 18 128/77 97 Room Air 08/26/20 18:15 69 Status: improved Disposition: HOME, SELF-CARE Condition: Stable Referrals: Elsy Negrete [facility] Patient Instructions: Nonspecific Chest Pain Stone Peoples MD Aug 26, 2020 22:05
--- NOTE | 2020-08-27 14:46 | Diagnostic Imaging Report ---
Indication: Chest pain Technique: One view of the chest Comparison: 12/04/2018 Findings: Lungs and pleural spaces are clear. Heart size is normal. No significant change Impression: No acute process
== END 2020-08-26 20:29 | disposition home or self-care (01) ==
LOC: EMR 19:15
DX: R07.9 Chest pain, unspecified (principal)
CPT/HCPCS: 36415; 71045; 80053; 84484; 85025; 93005; 99284